=== PATIENT | female | born 1965 | race African-American/Black ===

== ENCOUNTER 2021-02-16 08:55 | Emergency (ER) | payer MEDICAID ==
[~2021-02-16] VITALS: Ht 154.9 cm; Wt 100.0 kg
[2021-02-16] MEDS ORDERED: LORazepam 2 mg/ml vial IM ONE (09:25)
[2021-02-16 10:03] LABS: URINE HCG NEGATIVE (NEG)
[2021-02-16] MEDS: LORazepam 2 mg/ml vial IM ONE ×2 (10:05→14:30)
[2021-02-16 10:08] LABS: BASOPHILS # (AUTO) 0.1 X10'3 (0-0.2); BASOPHILS % (AUTO) 1.2 % (0-1); EOSINOPHILS # (AUTO) 0.1 X10'3 (0-0.9); HEMATOCRIT 35.7 % (35.0-45.0); HEMOGLOBIN 12.1 g/dl (12.0-16.0); LYMPHOCYTES # (AUTO) 1.9 X10'3 (1.1-4.8); LYMPHOCYTES % (AUTO) 23.2 % (21-51); MEAN CORPUSCULAR HEMOGLOBIN 30.4 PG (27.0-31.0); MEAN CORPUSCULAR VOLUME 89.6 FL (78-98); MONOCYTES # (AUTO) 0.5 X10'3 (0-0.9); MONOCYTES % (AUTO) 6.3 % (2-12); NEUTROPHILS # (AUTO) 5.7 X10'3 (1.8-7.7); NEUTROPHILS % (AUTO) 68.3 % (42-75); PLATELET COUNT 466 X10'3 (140-440); RED BLOOD COUNT 3.99 X10'6 (4.20-5.60); RED CELL DISTRIBUTION WIDTH 13.2 % (11.5-14.5); WHITE BLOOD COUNT 8.3 X10'3 (4.5-11.0)
[2021-02-16 10:10] LABS: ALANINE AMINOTRANSFERASE 18 U/L (12-78); ALKALINE PHOSPHATASE 55 IU/L (46-116); ANION GAP 9 (8-16); ASPARTATE AMINO TRANSFERASE 12 U/L (10-37); BILIRUBIN,TOTAL 0.4 MG/DL (0.1-1.0); BLOOD UREA NITROGEN 9 MG/DL (7-18); BUN/CREATININE RATIO 11.5 (6.6-38.0); CALCIUM 9.1 MG/DL (8.5-10.1); CHLORIDE 103 MMOL/L (99-107); CREATININE 0.78 MG/DL (0.40-0.90); GLUCOSE 178 MG/DL (70-104); POTASSIUM 3.2 MMOL/L (3.5-5.1); SODIUM 139 MMOL/L (135-145); TOTAL CARBON DIOXIDE 27.3 MMOL/L (24-32); TOTAL PROTEIN 8.2 G/DL (6.4-8.2); eGFR 77 ML/MIN
[2021-02-16 10:14] LABS: CLARITY,URINE SLIGHTLY CLOUDY (Clear); COLOR,URINE YELLOW (Yellow); GLUCOSE, URINE NEGATIVE (Neg); KETONES,URINE NEGATIVE (Neg); LEUKOCYTE ESTERASE ,URINE SMALL (Neg); NITRITES, URINE NEGATIVE (Neg); OCCULT BLOOD,URINE SMALL (Neg); PROTEIN,URINE 30 mg/dl (Neg); UA COLLECTION TYPE CLN CATCH MIDSTREAM; UROBILINOGEN,URINE 0.2 E.U/dL (0.2-1.0)
[2021-02-16 10:19] LABS: URINE AMPHETAMINE SCREEN NEGATIVE (Neg); URINE BARBITUATE SCREEN NEGATIVE (Neg); URINE BENZODIAZEPINES SCREEN NEGATIVE (Neg); URINE CANNABINOID SCREEN NEGATIVE (Neg); URINE COCAINE SCREEN NEGATIVE (Neg); URINE METHADONE SCREEN NEGATIVE (Neg); URINE OPIATE SCREEN NEGATIVE (Neg); URINE PHENCYCLIDINE SCREEN NEGATIVE (Neg)
[2021-02-16 10:20] LABS: ETHANOL < 0.010 GM/DL (0.0-0.010)
[2021-02-16 10:24] LABS: SQUAMOUS EPITHELIAL CELL,UR MANY /LPF (FEW)
[2021-02-16 10:25] LABS: BACTERIA,URINE 2+ /HPF (Neg); RBC,URINE 0-2 /HPF (0-2); WBC,URINE 0-4 /HPF (0-4)
[2021-02-16] MEDS ORDERED: potassium Cl 20 mEq SR tablet PO ONE (10:30)
[2021-02-16] MEDS ORDERED: METF-516 PO (12:11)
[2021-02-16] MEDS ORDERED: LITH150C8 PO (12:11)
[2021-02-16] MEDS ORDERED: HALO10TA13 PO (12:11)
[2021-02-16] MEDS ORDERED: LIRA0.6P2 SQ (12:11)
[2021-02-16] MEDS ORDERED: LEVO112T5 PO (12:11)
[2021-02-16] MEDS ORDERED: AMLO10TA PO (12:11)
[2021-02-16] MEDS ORDERED: GABA300C PO (12:11)
[2021-02-16] MEDS ORDERED: WARF6TAB49 PO (12:11)
[2021-02-16] MEDS ORDERED: OMEP-50 PO (12:11)
[2021-02-16] MEDS ORDERED: METO50TA17 PO (12:11)
--- NOTE | 2021-02-16 14:07 | NUR ---
patient upset and crying, states "I want to go to [facility]", gave a blanket per her request.
[2021-02-16] MEDS ORDERED: OLANZapine 5mg rapidly disint. tablet PO ONE (14:20)
--- NOTE | 2021-02-16 16:20 | NUR ---
PT EVALUATED BY SCM, PT PLACED ON A 5150
--- NOTE | 2021-02-16 22:00 | NUR ---
Assumed care of pt. Pt currently sleeping. Sitter outside room for observation
--- NOTE | 2021-02-17 07:15 | NUR ---
Pt ambulated independently to overflow bed 20. Pt tearful "I can't believe he just dropped me off."Security present.
--- NOTE | 2021-02-17 08:20 | NUR ---
Pt is lying in bed, crying stating "I can't do this." "I don't want to go back to [facility]." Pt requesting her scheduled medications. Waiting on medications to be processed through pharmacy. Pt is not consolable, keeps asking "Why did he just leave me here!" (referring to her boyfriend.) Pt allowed 1:1 assessment to be completed at bedside. Difficult to speak with pt has she is crying. Pt denies S/I just keeps repeating above statements. Pt was up to bathroom after assessment. Pt ate 100% of her breakfast.
[2021-02-17] MEDS: LORazepam 1 MG tablet PO PRN ×3 (08:49→20:01)
[2021-02-17] MEDS: pantoprazole 40mg Tablet.DR PO SCH (08:58)
[2021-02-17] MEDS: amLODIPine 5mg tablet PO SCH (08:58)
[2021-02-17] MEDS: metFORMIN 500mg tablet PO SCH ×2 (08:59→19:26)
[2021-02-17] MEDS: gabapentin 300mg capsule PO SCH ×2 (08:59→16:22)
[2021-02-17] MEDS: levoTHYROXINE 112mcg tablet PO SCH (09:05)
[2021-02-17] MEDS: metoprolol tartrate 50mg tablet PO SCH (09:06)
[2021-02-17 10:12] LABS: BASOPHILS # (AUTO) 0.1 X10'3 (0-0.2); BASOPHILS % (AUTO) 1.2 % (0-1); EOSINOPHILS # (AUTO) 0.1 X10'3 (0-0.9); EOSINOPHILS % (AUTO) 1.1 % (0-6); HEMATOCRIT 35.3 % (35.0-45.0); HEMOGLOBIN 11.9 g/dl (12.0-16.0); LYMPHOCYTES # (AUTO) 1.4 X10'3 (1.1-4.8); LYMPHOCYTES % (AUTO) 20.6 % (21-51); MEAN CORPUSCULAR HEMOGLOBIN 30.7 PG (27.0-31.0); MEAN CORPUSCULAR HGB CONC 33.7 g/dL (33.0-36.5); MEAN CORPUSCULAR VOLUME 91.1 FL (78-98); MONOCYTES # (AUTO) 0.4 X10'3 (0-0.9); MONOCYTES % (AUTO) 5.5 % (2-12); NEUTROPHILS # (AUTO) 4.9 X10'3 (1.8-7.7); NEUTROPHILS % (AUTO) 71.6 % (42-75); PLATELET COUNT 382 X10'3 (140-440); RED BLOOD COUNT 3.88 X10'6 (4.20-5.60); RED CELL DISTRIBUTION WIDTH 13.3 % (11.5-14.5); WHITE BLOOD COUNT 6.9 X10'3 (4.5-11.0)
--- NOTE | 2021-02-17 10:15 | NUR ---
Pt is sleeping restfully, respirations even and unlabored. Received order for PRN Ativan [address] Albright, effective. Pt's boyfriend Alban called to check on patient, but wouldn't leave his number. He stated that if she (pt) had his number she would "blow up my phone." States he will call again tomorrow.
--- NOTE | 2021-02-17 11:34 | NUR ---
Pt sleeping restfully, audible breathing sounds noted. No distress.
--- NOTE | 2021-02-17 13:29 | NUR ---
Patient sleeping with no distress, respirations even and unlabored. Pt is arousable.
--- NOTE | 2021-02-17 15:21 | NUR ---
Patient woke about 1500 ate her lunch (100%) and had to use the bathroom. Reported BM. Pt's Covid- 19 test was obtained and sent to lab. Pt continues to be upset and crying "Where am I going to go?" "He just dropped me off like I am a piece of trash." Pt is difficult to redirect as she has no insight on her emotions. Pt stated "why couldn't it have been me and not her."(r/t the recent of her step-daughter.) Pt is encouraged to get out of bed and as she is beginning to c/o back pain. Pt requests her nighttime medications "Did I have my medicine last night?" All current scheduled medications have been administered. Pt is labile in her crying, she escalates then is quite. Pt asked for her boyfriends cell number and again was told he didn't leave it. Pt was administerd PRN Ativan 1mg and blog writer will continue to monitor. Service Shop Foreman attempted to explain the boyfriend is also mourning the of his daughter, but pt kept saying "he just dropped me off and left me."
[2021-02-17] MEDS ORDERED: LORazepam 1 MG tablet PO ONE (16:45)
--- NOTE | 2021-02-17 16:54 | NUR ---
Receied order for one time dose PRN Ativan 1mg PO. Pt had a PRN Ativan at 1455 that was ineffective. Pt is agitated, pt is up and down from bed. "I just can't do this anymore" "Why did he leave me here like a piece of trash?" Pt is inconsolable.
--- NOTE | 2021-02-17 17:31 | NUR ---
Please call sister Cristy Mcbride instead of mother [phone]. Pt's son Troy Salter (age 29) also lives with Cristy.
--- NOTE | 2021-02-17 17:39 | NUR ---
Received phone call from sister Cristy Mcbride. Cristy states the pt.'s boyfriend (not her ) Mir and his daughter came from [place] and picked pt up from [facility] last week. During this time Mir's daughter overdosed and . Pt's sister stated that pt has difficulty with and dying. When pt.'s grandmother pt was in hospital for three months with mental health issues. Per sister pt has a history of blood clots (is all she knows) and that is the reason she is on Warfarin. Pt stated she "thinks" she is on Warfarin r/t history of "PE's."
--- NOTE | 2021-02-17 17:40 | NUR ---
Pt resting comfortably, audible breathing sounds note, respirations even and unlabored.
--- NOTE | 2021-02-17 18:33 | NUR ---
Patient laying on her right side, resting with eyes closed, appears to be aslee. Even and unlabored respirations.
--- NOTE | 2021-02-17 19:33 | NUR ---
Patient awake now- sitting on side of bed eating dinner. Asking if has called- informed he hasn't. Also stating she does not want to go back to [facility].
--- NOTE | 2021-02-17 20:20 | NUR ---
Patient sobbing unconsollably, states her who dropped her off has her wallet.
[2021-02-17] MEDS ORDERED: lithium carbonate 150mg capsule PO SCH (21:00)
[2021-02-17] MEDS ORDERED: haloperidol 5mg tablet PO SCH (21:00)
[2021-02-17] MEDS ORDERED: warfarin 4mg tablet PO SCH (21:00)
[2021-02-17] MEDS ORDERED: warfarin 3mg tablet PO SCH (21:00)
--- NOTE | 2021-02-17 21:31 | NUR ---
Patient laying on her right side, snoring softly, appears to be asleep.
--- NOTE | 2021-02-17 22:31 | NUR ---
Patient continues to sleep, even and unlabored respirations, laying on her side.
--- NOTE | 2021-02-17 23:30 | NUR ---
Patient continues to rest, appears to be asleep. Laying on her side.
--- NOTE | 2021-02-18 00:30 | NUR ---
Patient transferred to room 15, tolerate well.
--- NOTE | 2021-02-18 01:30 | NUR ---
Patient appears to be asleep at this time, even and unlabored respirations.
--- NOTE | 2021-02-18 02:30 | NUR ---
Patient has been resting quietly in room, appears to be asleep.
--- NOTE | 2021-02-18 03:30 | NUR ---
Patient laying in her bed, even and unlabored respirations.
--- NOTE | 2021-02-18 04:30 | NUR ---
Patient appears to be asleep, even and unlabored respirations. Able to turn side to side independently.
--- NOTE | 2021-02-18 05:30 | NUR ---
Patient continues to rest in her room, turned onto her left side. Even and unlabored respirations.
--- NOTE | 2021-02-18 06:30 | NUR ---
Pt moved from ER main to ER overflow bed 20.
[2021-02-18 06:38] VITALS: BP_DIAS 78
[2021-02-18] MEDS: LORazepam 1 MG tablet PO PRN ×3 (06:49→14:50)
[2021-02-18] MEDS: pantoprazole 40mg Tablet.DR PO SCH (06:49)
[2021-02-18] MEDS: metFORMIN 500mg tablet PO SCH (06:50)
[2021-02-18 07:02] VITALS: BP_SYST 130
[2021-02-18] MEDS: metoprolol tartrate 50mg tablet PO SCH (07:02)
[2021-02-18] MEDS: amLODIPine 5mg tablet PO SCH (07:02)
[2021-02-18] MEDS: levoTHYROXINE 112mcg tablet PO SCH (07:02)
[2021-02-18] MEDS: gabapentin 300mg capsule PO SCH ×3 (07:02→15:05)
--- NOTE | 2021-02-18 07:26 | NUR ---
Pt is despondent, crying constantly, verbalizing confusion as to why her would drop her off like a sack of potatos. Pt denies SI/AH/VH/HI. Pt c/o feeling cold, provided pt with a warm blanket. Lab is here to draw a PT/INR and a CBC. Pt is stating she does not want to go back to [facility], "they weren't nice to me."
--- NOTE | 2021-02-18 07:28 | NUR ---
Pt given PRN Ativan 1 mg at 0649 for increased anxiety.
[2021-02-18] MEDS ORDERED: LIRAGLUTIDE 0.6 MG/0.1 ML SQ SCH (08:00)
--- NOTE | 2021-02-18 08:09 | NUR ---
Pt's FS BG AC breakfast was 135, changed diet from regular to carb controlled. Pt taking Glucophage.
[2021-02-18 08:13] LABS: BASOPHILS % (AUTO) 0.2 % (0-1); EOSINOPHILS # (AUTO) 0.1 X10'3 (0-0.9); EOSINOPHILS % (AUTO) 1.9 % (0-6); HEMATOCRIT 34.1 % (35.0-45.0); LYMPHOCYTES # (AUTO) 2.1 X10'3 (1.1-4.8); LYMPHOCYTES % (AUTO) 32.6 % (21-51); MEAN CORPUSCULAR HEMOGLOBIN 31.6 PG (27.0-31.0); MEAN CORPUSCULAR HGB CONC 35.1 g/dL (33.0-36.5); MEAN CORPUSCULAR VOLUME 89.9 FL (78-98); MEAN PLATELET VOLUME 8.2 FL (7.4-10.4); MONOCYTES # (AUTO) 0.5 X10'3 (0-0.9); MONOCYTES % (AUTO) 7.3 % (2-12); NEUTROPHILS # (AUTO) 3.8 X10'3 (1.8-7.7); PLATELET COUNT 253 X10'3 (140-440); RED BLOOD COUNT 3.79 X10'6 (4.20-5.60); RED CELL DISTRIBUTION WIDTH 12.9 % (11.5-14.5); WHITE BLOOD COUNT 6.5 X10'3 (4.5-11.0)
--- NOTE | 2021-02-18 08:19 | NUR ---
Pt tearful, inconsolable. 1:1, distraction, redirection ineffective. Pt verbalizing over and over again that she needs her wallet, her other purse, her money, her boyfriend's number. Pt keeps saying, "I can't do this, I can't do this" over and over again. Spoke with Dr Yarbrough and obtained orders for Zyprexa 5 mg and Benadryl 50 mg PO one time now.
[2021-02-18] MEDS ORDERED: OLANZapine 2.5MG tablet PO ONE (08:20)
[2021-02-18] MEDS ORDERED: diphenhydrAMINE 25mg capsule PO ONE (08:20)
--- NOTE | 2021-02-18 08:30 | NUR ---
Medicated with Zyprexa 5 mg and Benadryl 50 mg PO at 0824. Pt wanting a shower, offered pt warm wipes for a bedbath, hygiene bucket at bedside, pt declined bed bath provisions.
--- NOTE | 2021-02-18 09:06 | NUR ---
Pt quietly lying in bed on her right side, appears to be sleeping.
--- NOTE | 2021-02-18 09:22 | NUR ---
Pt's boyfriend's daughter Tiffanie called to see how the pt is doing. Pt is currently sleeping. Tiffanie left her phone number to give to the pt: [phone]. She also left her dad's number (Alban-pt's boyfriend): [phone]. She stated Alban's phone number is a new one that the pt may not have had, states it is okay to give pt both phone numbers when she wakes up.
--- NOTE | 2021-02-18 10:02 | NUR ---
Lab is here to redraw the pt. Pt is awake and crying/sobbing again, asking where she is going to go.
--- NOTE | 2021-02-18 10:13 | NUR ---
Pt is on the phone with her boyfriend crying and asking why he left her here.
--- NOTE | 2021-02-18 10:31 | NUR ---
Boyfriend called to speak with the patient. He is in [place] and won't be able to come here to drop off the patient's wallet until Thursday. Darin WILHELM from [facility] called to inquire about the pt, she is being presented to the psychiatrist.
--- NOTE | 2021-02-18 10:54 | NUR ---
Medicated pt with Ativan 1 mg at 1049 for increased anxiety. Pt up to use the bathroom. Lab is here to attempt to draw her again for the 3rd time.
--- NOTE | 2021-02-18 11:06 | NUR ---
Lab was successful with blood draw.
--- NOTE | 2021-02-18 11:54 | NUR ---
Pt is lying quietly in bed, appears to be sleeping.
--- NOTE | 2021-02-18 13:07 | NUR ---
Pt is sitting up eating her lunch.
--- NOTE | 2021-02-18 14:05 | NUR ---
Pt is in the bathroom giving herself a sponge bath, warm wipes, clean scrubs, and disposable underwear provided.
--- NOTE | 2021-02-18 15:01 | NUR ---
Pt has been accepted upstairs at [facility], called and gave a nurse to nurse report to Carmencita clark RN.
--- NOTE | 2021-02-18 15:08 | NUR ---
Pt transferred upstairs to [facility], left overflow in a w/c accompanied by PCT and security.
[2021-02-18] MEDS ORDERED: TRAZ-251 PO (16:29)
== END 2021-02-18 15:08 ==
LOC: ER 08:56
DX: E87.6 Hypokalemia (principal); Z20.822 Contact with and (suspected) exposure to COVID-19; F79 Unspecified intellectual disabilities; R41.82 Altered mental status, unspecified; F31.9 Bipolar disorder, unspecified; Z88.8 Allergy status to other drugs, medicaments and biological substances; Z79.84 Long term (current) use of oral hypoglycemic drugs; Z79.01 Long term (current) use of anticoagulants; Z79.899 Other long term (current) drug therapy
CPT/HCPCS: 36415; 80053; 80305; 80320; 81001; 81025; 82948; 84443; 85025; 85610; 87635; 96372; 99285; C9803; J2060; Q0163